=== PATIENT | male | born 1980 | race Two or more races ===

== ENCOUNTER 2018-12-06 10:46 | Emergency (ER) | payer MEDICAID, OTHER ==
[~2018-12-06] VITALS: Ht 175.3 cm; Wt 99.8 kg
[2018-12-06 11:44] VITALS: BP 128/79
== END 2018-12-06 12:35 | disposition home or self-care (01) ==
LOC: ER 10:50
DX: S42.254A Nondisplaced fracture of greater tuberosity of right humerus, initial encounter for closed fracture (principal); S83.92XA Sprain of unspecified site of left knee, initial encounter; V49.59XA Passenger injured in collision with other motor vehicles in traffic accident, initial encounter; Y93.89 Activity, other specified; Y99.8 Other external cause status; Y92.89 Other specified places as the place of occurrence of the external cause
CPT/HCPCS: 73030; 73562